=== PATIENT | male | born 1985 | race African-American/Black ===

== ENCOUNTER 2023-01-20 18:04 | Inpatient (IN) | payer OTHER ==
[2023-01-20 18:48] VITALS: BMI 28.1
[2023-01-20] MEDS ORDERED: guaiFENesin 600 MG TABLET.ER (FP) PO PRN (19:53)
[2023-01-20] MEDS ORDERED: BISMUTH SUBSALICYLATE 524 MG/30 ML PO PRN (19:53)
[2023-01-20] MEDS ORDERED: DICYCLOMINE HCL 10 MG CAPSULE PO PRN (19:53)
[2023-01-20] MEDS ORDERED: BENZONATATE 200 MG CAPSULE PO PRN (19:53)
[2023-01-20] MEDS ORDERED: BENZOCAINE/MENTHOL (CHLORASEPTIC ) LOZENGE MM PRN (19:53)
[2023-01-20] MEDS ORDERED: ONDANSETRON *ODT* 4 MG TABLET SL PRN (19:53)
[2023-01-20] MEDS ORDERED: IBUPROFEN 600 MG TABLET (FP) PO PRN (19:53)
[2023-01-20] MEDS ORDERED: P-EPHED 60MG/TRIPROLIDI 2.5MG TABLET PO PRN (19:53)
[2023-01-20] MEDS ORDERED: IBUPROFEN 400 MG TABLET (FP) PO PRN (19:53)
[2023-01-20] MEDS ORDERED: POLYETHYLENE GLYCOL (HEALTHYLAX) 3350 17 GM PACKET PO PRN (19:53)
[2023-01-20] MEDS ORDERED: MAGNESIUM HYDROX 2400MG/30ML ORAL SUSPENSION 30 ML CUP PO PRN (19:53)
[2023-01-20] MEDS ORDERED: LOPERAMIDE HCL 2 MG CAPSULE PO PRN (19:53)
[2023-01-20] MEDS ORDERED: ACETAMINOPHEN 325 MG TABLET (FP) PO PRN (19:53)
[2023-01-20] MEDS ORDERED: MAG HYDROX/AL HYDROX/SIMETH 30 ML UNIT-DOSE CUP PO PRN (19:53)
[2023-01-20] MEDS ORDERED: chlordiazePOXIDE HCL 25 MG CAPSULE PO ONE (19:54)
[2023-01-20] MEDS ORDERED: chlordiazePOXIDE HCL 25 MG CAPSULE PO PRN (19:54)
[2023-01-20] MEDS ORDERED: chlordiazePOXIDE HCL 25 MG CAPSULE ONE (20:10)
[2023-01-20] MEDS: chlordiazePOXIDE HCL 25 MG CAPSULE PO SCH (22:31)
[2023-01-20] MEDS: THIAMINE HCL 100 MG TABLET (FP) PO SCH (22:31)
[2023-01-20] MEDS: levETIRAcetam 500 MG TABLET (FP) PO SCH (22:31)
[2023-01-20] MEDS: MELATONIN 5 MG TABLETS PO SCH (23:23)
[2023-01-21] MEDS: chlordiazePOXIDE HCL 25 MG CAPSULE PO SCH ×4 (05:25→22:33)
[2023-01-21 10:28] LABS: HEMATOCRIT 37.5 % (35.4-49); HEMOGLOBIN 12.3 GM/dL (11.7-16.9); MCH 29.7 pg (25.7-33.7); MCHC 32.9 g/dl (32.0-35.9); MEAN CELL VOLUME 90.3 fl (80-96); MEAN PLT VOLUME 9.1 fl (7.5-11.1); PLATELET COUNT 143 10^3/uL (134-434); RBC 4.15 M/mm3 (4.00-5.60); RDW 14.8 % (11.9-15.9); WHITE BLOOD COUNT 5.4 K/mm3 (4.0-10.0)
[2023-01-21] MEDS: levETIRAcetam 500 MG TABLET (FP) PO SCH ×2 (10:34→22:32)
[2023-01-21] MEDS: PRENATAL VITAMINS W/ FOLIC ACID TABLET (FP) PO SCH (10:34)
[2023-01-21] MEDS: hydrOXYzine PAMOATE 25 MG CAPSULE (FP) PO PRN ×2 (10:34→22:33)
[2023-01-21 10:48] LABS: POTASSIUM 3.3 mmol/L (3.5-5.1)
[2023-01-21 10:57] LABS: BLOOD UREA NITROGEN 10.5 mg/dL (7-18)
[2023-01-21 10:58] LABS: BILIRUBIN,TOTAL 1.2 mg/dL (0.2-1); TOT PROT 7.2 g/dl (6.4-8.2)
[2023-01-21 11:00] LABS: CALCIUM 9.9 mg/dL (8.5-10.1)
[2023-01-21] MEDS ORDERED: POTASSIUM CHLORIDE ORAL LIQUID 20 MEQ/15 ML PO ONE ×2 (11:10→18:00)
[2023-01-21] MEDS: MELATONIN 5 MG TABLETS PO SCH (22:15)
[2023-01-21] MEDS: THIAMINE HCL 100 MG TABLET (FP) PO SCH (22:32)
[2023-01-22] MEDS: chlordiazePOXIDE HCL 25 MG CAPSULE PO SCH ×2 (05:54→10:40)
[2023-01-22 06:41] VITALS: BP 138/83; PULSE 88; RESP 18; TEMP 98.6
[2023-01-22] MEDS: levETIRAcetam 500 MG TABLET (FP) PO SCH (10:40)
[2023-01-22] MEDS: PRENATAL VITAMINS W/ FOLIC ACID TABLET (FP) PO SCH (10:40)
[2023-01-23] MEDS ORDERED: chlordiazePOXIDE HCL 10 MG CAPSULE PO PRN
[2023-01-23] MEDS ORDERED: chlordiazePOXIDE HCL 10 MG CAPSULE PO SCH (05:00)
[2023-01-24] MEDS ORDERED: chlordiazePOXIDE HCL 10 MG CAPSULE PO SCH (05:00)
[2023-01-25] MEDS ORDERED: chlordiazePOXIDE HCL 10 MG CAPSULE PO ONE (05:00)
== END 2023-01-22 09:47 | disposition left against medical advice (07) | DRG 770 ==
LOC: YASAS 18:04 → Y6N 20:25
PROVIDERS: ADMIT Allergy & Immunology; ATTEND Surgery
PROC: HZ2ZZZZ Detoxification Services for Substance Abuse Treatment (ICD-10-PCS; principal; 2023-01-20)
DX: F10.230 Alcohol dependence with withdrawal, uncomplicated (principal); F10.288 Alcohol dependence with other alcohol-induced disorder; F17.210 Nicotine dependence, cigarettes, uncomplicated; F14.20 Cocaine dependence, uncomplicated; F12.20 Cannabis dependence, uncomplicated; E87.6 Hypokalemia; R74.01 Elevation of levels of liver transaminase levels
CPT/HCPCS: 36415; 80053; 84132; 85027; 86780; 87635